=== PATIENT | female | born 1995 | race Hispanic/Latino ===

== ENCOUNTER 2023-02-20 19:12 | Emergency (ER) | payer OTHER ==
[2023-02-20] MEDS ORDERED: Ibuprofen 200 MG TAB ONE (19:44)
[2023-02-20] MEDS ORDERED: Bacitracin 1 PK ONE (20:16)
== END 2023-02-20 20:38 | disposition home or self-care (01) ==
LOC: ERS 19:12
DX: S60.413A Abrasion of left middle finger, initial encounter (principal); S20.312A Abrasion of left front wall of thorax, initial encounter; M25.512 Pain in left shoulder; V49.9XXA Car occupant (driver) (passenger) injured in unspecified traffic accident, initial encounter
CPT/HCPCS: 71045

== ENCOUNTER 2024-02-13 02:21 | Emergency (ER) | payer BC, OTHER, SELFPAY ==
[2024-02-13] MEDS ORDERED: Metoclopramide HCl 10 MG (2 mL) VIAL ONE (03:07)
[2024-02-13] MEDS ORDERED: Ketorolac Tromethamine 30 MG (1 mL) VIAL ONE (03:07)
[2024-02-13] MEDS ORDERED: diphenhydrAMINE 50 MG/ML VIAL ONE (03:07)
[2024-02-13 03:26] LABS: Bacteria/HPF None Seen HPF (None Seen); Bilirubin Negative (Negative); Blood, Urine Negative (Negative); CAUTI Indications for Culture Dysuria,urgency,freq; Clarity Clear (Clear); Glucose, Urine (Dipstick) Normal (Negative); Ketone, Urine Greater than 150 mg/dL (Negative); Leukocyte Negative Leu/uL (Negative); Nitrite Negative (Negative); Protein, Urine (Dipstick) 70 mg/dL (Neg-Trace); Specific Gravity, Urine 1.038 (1.002-1.036); Squamous Epithelial 0-3 HPF (0-3); Urobilinogen Normal mg/dL (Less than 2); WBC/HPF 0-3 HPF (0-3)
[2024-02-13 03:27] LABS: Pregnancy Test - Urine (BHCG) Negative (Negative); Pregu Control Background? CLEAR/WHITE (CLR/WHITE); Pregu Control Bar Appear? YES (CONTROL BAR); Specific Gravity 1.038 (1.002-1.036); Urine Culture Reflex No No
[2024-02-13 03:31] LABS: #Basophils Less than 0.03 10x3/uL (0.0-0.2); #Eosinophils Less than 0.03 10x3/uL (0.0-0.7); %Basophils 0.3 % (0.0-1.0); %Lymphocytes 7.2 % (21.0-51.0); %Monocytes 1.1 % (0.0-10.0); %Neutrophils 91.1 % (42.0-75.0); Hematocrit 37.8 % (36.0-47.0); Hemoglobin 12.8 g/dL (12.0-16.0); Mean Corpuscular HGB CONC 33.9 g/dL (32.0-36.0); Mean Corpuscular Hemoglobin 29.4 pg (27.0-31.0); Mean Corpuscular Volume 86.9 fL (78.0-98.0); Mean Platelet Volume 8.9 fL (7.4-10.4); Platelet Count 289 10x3/uL (130-400); RBC Distribution Width 12.5 % (11.5-14.5); Red Blood Cell (RBC) Count 4.35 mill/uL (4.20-5.40)
[2024-02-13 03:53] LABS: ALT (SGPT) 14 U/L (8-55); AST (SGOT) 41 U/L (5-34); Albumin 4.1 g/dL (3.5-5.0); Alkaline Phosphatase 39 U/L (40-110); Anion Gap 20 mmol/L (10-20); BUN (Urea Nitrogen) 13 mg/dL (7.0-18.7); Bilirubin, Total 0.7 mg/dL (0.2-1.2); Calc. Creatinine Clearance 0 mL/min (70-130); Calcium 9.3 mg/dL (7.8-10.44); Carbon Dioxide 19 mmol/L (22-29); Chloride 103 mmol/L (98-107); Estimated GFR 96; Glucose 126 mg/dL (70-105); Lipase 16 U/L (8-78); Potassium 4.5 mmol/L (3.5-5.1); Protein, Total 8.1 g/dL (6.0-8.3); Sodium 137 mmol/L (136-145)
[2024-02-13] MEDS ORDERED: Prochlorperazine 10 MG/2 ML VIAL ONE (04:50)
== END 2024-02-13 07:01 | disposition home or self-care (01) ==
LOC: ERS 02:21
DX: G43.909 Migraine, unspecified, not intractable, without status migrainosus (principal); R11.2 Nausea with vomiting, unspecified
CPT/HCPCS: 80053; 81001; 81025; 83690; 85025; 87428; 96361; 96374; 96375; J0780; J1200; J1885; J2765